=== PATIENT | male | born 1930 | race Caucasian/White ===

== ENCOUNTER 2016-07-28 13:59 | Inpatient (IN) | payer MEDICARE, OTHER ==
[~2016-07-28] VITALS: Ht 175.3 cm; Wt 108.9 kg
[2016-07-28 14:32] LABS: Basophils # (auto) 0 uL; Eosinophils # (auto) 0 uL; Eosinophils % (auto) 0.1 % (0.0-7.0); Hematocrit 52.7 % (41.0-53.0); Lymphocytes # (auto) 0.4 uL; Lymphocytes % (auto) 3.8 % (10.0-50.0); Mean Corpuscular Hgb Conc. 32.2 g/dL (32.0-36.0); Mean Corpuscular Volume 93.1 fL (80.0-100.0); Mean Platelet Volume 7.9 fL (7.4-10.4); Monocytes # (auto) 0.4 uL; Monocytes % (auto) 3.5 % (0.0-12.0); Neutrophils # (auto) 10.9 uL; Neutrophils % (auto) 92.6 % (37.0-80.0); Platelet Count (auto) 216 10^3/uL (140-450); Red Cell Distribution Width 14.3 % (11.6-16.0); White Blood Cell 11.7 10^3/uL (4.4-10.8)
[2016-07-28 14:49] LABS: Albumin 3.4 g/dL (3.4-5.0); Magnesium 1.9 mg/dL (1.6-2.6); Potassium 4.7 mmol/L (3.5-5.1)
[2016-07-28 14:51] LABS: Bilirubin, Total 0.6 mg/dL (0.2-1.0); Total Protein 7.3 g/dL (6.4-8.2)
[2016-07-28] MEDS ORDERED: InsuLIN REG 1unit/0.01ml Soln (100units/ml) IV ONE (15:15)
[2016-07-28 15:43] LABS: Urine Bilirubin Negative (Negative); Urine Blood Negative /uL (Negative); Urine Color Yellow (Yellow); Urine Glucose 4+ mg/dL (Normal); Urine Hyaline Cast MOD /lpf (0 - 2); Urine Ketone Negative (Negative); Urine Nitrite Negative (Negative); Urine RBC <1 /hpf (0 - 3); Urine Squamous Epithelial Cell FEW /hpf (<5); Urine Urobilinogen Normal (Negative)
[2016-07-28] MEDS ORDERED: SODIUM CHLORIDE 0.9% 1,000 ML IV ONE (17:39)
[2016-07-28] MEDS ORDERED: LEVOFLOXACIN 750MG 150 ML IV ONE (17:45)
[2016-07-28 18:07] LABS: Temperature: 21.4 C (20.0-25.0)
[2016-07-28] MEDS ORDERED: ACETAMINOPHEN 325 MG TAB PO PRN (21:15)
[2016-07-28] MEDS ORDERED: DOCUSATE SOD 100 MG CAP PO PRN (21:15)
[2016-07-28] MEDS ORDERED: ONDANSETRON HCL 4 MG/2 ML VIAL IV PRN (21:15)
[2016-07-28] MEDS ORDERED: DEXTROSE (50%) 50ML SYRG IV PRN (21:15)
[2016-07-28] MEDS ORDERED: HYDROcodone-ACET 5/325MG TAB PO PRN (21:15)
[2016-07-28] MEDS ORDERED: ATORVASTATIN 20 MG TAB PO SCH (22:00)
[2016-07-28] MEDS: CARVEDILOL 12.5 MG TAB PO SCH (23:47)
[2016-07-28] MEDS: FAMOTIDINE 20 MG TAB PO SCH (23:48)
[2016-07-28] MEDS: ACCU-CHEK COMFORT CURVE STRIP VI SCH (23:48)
[2016-07-29 03:42] VITALS: BP 105/52
[2016-07-29 05:00] VITALS: BP 103/60
[2016-07-29] MEDS: ACCU-CHEK COMFORT CURVE STRIP VI SCH ×2 (06:10→12:00)
[2016-07-29] MEDS: InsuLIN REG 1unit/0.01ml Soln (100units/ml) SC SCH ×3 (06:10→12:00)
[2016-07-29 06:22] LABS: Basophils # (auto) 0 uL; Basophils % (auto) 0.2 % (0.0-2.0); Eosinophils # (auto) 0.1 uL; Eosinophils % (auto) 1.2 % (0.0-7.0); Hematocrit 43.1 % (41.0-53.0); Hemoglobin 13.8 g/dL (13.5-17.5); Lymphocytes # (auto) 1.5 uL; Lymphocytes % (auto) 16.8 % (10.0-50.0); Mean Corpuscular Hemoglobin 29.9 pg (28.0-32.0); Mean Corpuscular Volume 93.3 fL (80.0-100.0); Mean Platelet Volume 8.3 fL (7.4-10.4); Monocytes # (auto) 0.7 uL; Monocytes % (auto) 8.2 % (0.0-12.0); Neutrophils # (auto) 6.4 uL; Neutrophils % (auto) 73.6 % (37.0-80.0); Platelet Count (auto) 170 10^3/uL (140-450); Red Cell Distribution Width 14.4 % (11.6-16.0); White Blood Cell 8.8 10^3/uL (4.4-10.8)
[2016-07-29 06:54] LABS: Albumin 2.6 g/dL (3.4-5.0); BUN/Creatinine Ratio 21.1; Bilirubin, Total 0.5 mg/dL (0.2-1.0); Calcium 9.2 mg/dL (8.5-10.1); Potassium 4.1 mmol/L (3.5-5.1); Total Protein 5.5 g/dL (6.4-8.2)
[2016-07-29 09:00] VITALS: BP 132/68
[2016-07-29] MEDS: FAMOTIDINE 20 MG TAB PO SCH (09:45)
[2016-07-29] MEDS: CARVEDILOL 12.5 MG TAB PO SCH (09:46)
[2016-07-29] MEDS ORDERED: ALLOPURINOL 100 MG TAB PO SCH (10:00)
[2016-07-29] MEDS ORDERED: HCTZ 25 MG TAB PO SCH (10:00)
[2016-07-29] MEDS ORDERED: FUROSEMIDE 20 MG TAB PO SCH (10:00)
[2016-07-29] MEDS ORDERED: LISINOPRIL 20 MG TAB PO SCH (10:00)
[2016-07-29] MEDS ORDERED: ENOXAPARIN SOD 30 MG/0.3 ML SYRINGE SC SCH (10:00)
[2016-07-29] MEDS ORDERED: ENOXAPARIN SOD 40 MG/0.4 ML SYRINGE SC SCH (10:00)
[2016-07-29 13:00] VITALS: BP 115/66
[2016-07-29] MEDS ORDERED: LEVOFLOXACIN 250MG 50 ML IV SCH (22:00)
[2016-07-30] MEDS ORDERED: LEVOFLOXACIN 500MG 100 ML IV SCH (10:00)
== END 2016-07-29 13:00 | DRG 871 ==
LOC: EDBD 13:59 → ER 14:06 → OVERFLOW 14:07 → WEST WING 21:58
PROVIDERS: ADMIT Internal Medicine; ATTEND Family Medicine
DX: A41.9 Sepsis, unspecified organism (principal); J18.9 Pneumonia, unspecified organism; I13.0 Hypertensive heart and chronic kidney disease with heart failure and stage 1 through stage 4 chronic kidney disease, or unspecified chronic kidney disease; N39.0 Urinary tract infection, site not specified; J98.11 Atelectasis; E66.9 Obesity, unspecified; E11.22 Type 2 diabetes mellitus with diabetic chronic kidney disease; N18.3 Chronic kidney disease, stage 3 (moderate); N40.0 Benign prostatic hyperplasia without lower urinary tract symptoms; I50.9 Heart failure, unspecified; I70.0 Atherosclerosis of aorta; K40.90 Unilateral inguinal hernia, without obstruction or gangrene, not specified as recurrent; K57.30 Diverticulosis of large intestine without perforation or abscess without bleeding; M47.9 Spondylosis, unspecified; K76.0 Fatty (change of) liver, not elsewhere classified; Z86.73 Personal history of transient ischemic attack (TIA), and cerebral infarction without residual deficits; Z88.0 Allergy status to penicillin; Z68.35 Body mass index [BMI] 35.0-35.9, adult
CPT/HCPCS: 36415; 71010; 74176; 80053; 81001; 82962; 83036; 83735; 83880; 84484; 85025; 87040; 93005; 94761; 96365; 96366; 96375; 97001; J1815; J1956